=== PATIENT | female | born 1965 | race Caucasian/White ===

== ENCOUNTER 2017-05-07 22:27 | Emergency (ER) | payer MEDICAID ==
[2017-05-07] MEDS ORDERED: LORazepam 2 MG/ML VIAL IVP STA (22:41)
[2017-05-07] MEDS ORDERED: THIAMINE 100 MG TABLET PO STA (22:41)
[2017-05-07] MEDS ORDERED: chlordiazePOXIDE 25 MG CAPSULE PO STA (22:41)
[2017-05-07] MEDS ORDERED: FOLIC ACID 1 MG TABLET PO STA (22:41)
[2017-05-07] MEDS ORDERED: SODIUM CHLORIDE 0.9% 1,000 ML IV ONE (22:41)
[2017-05-07] MEDS ORDERED: ONDANSETRON 4 MG/2 ML VIAL IVP STA (22:42)
--- NOTE | 2017-05-07 22:53 | ED Physician Documentation ---
History of Present Illness - Stated complaint Stated Complaint: SANDHU/NOSE BLEED/VOMITING - Chief complaint Chief Complaint: Neuro - History obtained from History obtained from: Patient, Family - History of Present Illness Timing: Today - Additonal information Additional information: Patient is a 51 year old female presenting to the emergency department for alcohol withdrawal. Patient states that she has been binging on about 2 bottles of wine a day for the last couple of weeks. patient states that her last drink was about 24 hours ago. Patient states that today she has had the shakes, vomiting hallucinations and felt like her heart was racing. Patient and father state that they took her blood pressure at home and it was elevated. Review of Systems Constitutional: denies: Fever, Myalgias Eyes: denies: Decreased vision, Photophobia Ears: denies: Ear pain Nose: reports: Congestion Throat: reports: Reviewed and negative Cardiac: reports: Palpitations Respiratory: denies: Dyspnea GI: reports: Nausea, Vomiting : reports: Reviewed and negative Skin: denies: Rash, Lesions Musculoskeletal: reports: Reviewed and negative Neurologic: reports: Headache. denies: Focal weakness, Altered mental status, Head injury, LOC Psychiatric: reports: Hallucinations, Anxiety. denies: Depressed, Suicidal Immunocompromised: denies: Immunocompromised PD PAST MEDICAL HISTORY - Present Medications Home Medications: Ambulatory Orders Medication Instructions Recorded Confirmed LORazepam [Ativan] 0.5 mg PO Q6H #10 tablet 05/07/17 Ondansetron Odt [Zofran] 4 mg TL Q6H PRN #14 tablet 05/07/17 chlordiazePOXIDE [Librium] 25 mg PO Q6H #10 capsule 05/07/17 - Allergies Allergies/Adverse Reactions: Allergies Allergy/AdvReac Type Severity Reaction Status Date / Time No Known Drug Allergies Allergy Verified 05/07/17 22:47 PD ED PE NORMAL - Vitals Vital signs reviewed: Yes - General General: Alert and oriented X 3, Well developed/nourished - HEENT HEENT: Atraumatic, PERRL, Moist mucous membranes - Neck Neck: Supple, no meningeal sign, No JVD - Cardiac Cardiac: RRR, No murmur - Respiratory Respiratory: No respiratory distress, Clear bilaterally - Abdomen Abdomen: Soft, Non tender, Non distended - Derm Derm: Normal color, No rash - Extremities Extremities: No deformity - Neuro Neuro: Alert and oriented X 3, Other (mild tremor) Eye Opening: Spontaneous Motor: Obeys Commands Verbal: Oriented GCS Score: 15 PD ED PE EXPANDED - General General: Alert, Anxious Results - Vitals Vitals: Vital Signs - 24 hr 05/07/17 05/07/17 22:30 23:24 Temperature 36.0 C L Heart Rate 75 65 Respiratory 20 18 Rate Blood Pressure 157/87 H 138/85 H O2 Saturation 99 100 Oxygen O2 Source Room air PD MEDICAL DECISION MAKING - ED course Complexity details: reviewed old records, reviewed results, re-evaluated patient , considered differential, d/w patient, d/w family ED course: Patient was seen and examined at bedside. IV access was gained and patient was treated with ativan, librium zofran thiamine, folic acid and iv fluids. Patient had a mild tremor but was not diaphoretic, or tachycardic. Patient responded well to the therapy. Patient no longer had tremors and was normotensive. detailed discharge and follow up instructions was given to the family and the patient was stable for discharge with outpatient follow up. Departure - Departure Disposition: 01 Home, Self Care Clinical Impression: Alcohol withdrawal delirium, acute, hyperactive Condition: Good Instructions: ED Withdrawal Alcohol Follow-Up: primary,care provider [Other] Prescriptions: chlordiazePOXIDE [Librium] 25 mg PO Q6H #10 capsule LORazepam [Ativan] 0.5 mg PO Q6H #10 tablet Ondansetron Odt [Zofran] 4 mg TL Q6H PRN #14 tablet PRN Reason: Nausea / Vomiting Comments: Your symptoms today are being caused by alcohol withdrawal. You symptoms should get better over the next couple of days. You can take the ativan for quick response and librium for longer acting control of your symptoms. You should follow up with your doctor and look into support groups for alcoholism. you may return to the emergency department at any time for new, worsening or uncontrollable symptoms.
[2017-05-07 23:57] VITALS: BP 133/74
== END 2017-05-07 23:57 | disposition home or self-care (01) ==
LOC: ED 22:27
DX: F10.231 Alcohol dependence with withdrawal delirium (principal)
CPT/HCPCS: 96361; 96374; 99283; 99284; A9270; J2060

== ENCOUNTER 2017-08-26 21:35 | Emergency (ER) | payer MEDICAID ==
[2017-08-26 21:50] LABS: MUDS CUTOFF CONCENTRATIONS CUTOFF CONC BELOW:
[2017-08-26 21:53] LABS: BILIRUBIN,URINE NEGATIVE (NEGATIVE); GLUCOSE, URINE (UA) NEGATIVE (NEGATIVE); KETONES,URINE (UA) NEGATIVE (NEGATIVE); LEUKOCYTE ESTERASE, URINE SMALL (NEGATIVE); NITRITE,URINE NEGATIVE (NEGATIVE); OCCULT BLOOD,URINE TRACE-LYSE (NEGATIVE); PROTEIN,URINE NEGATIVE (NEGATIVE); UROBILINOGEN,URINE 0.2 (NORMAL) E.U./dL (NORMAL)
[2017-08-26 22:03] LABS: CLARITY,URINE CLEAR (CLEAR)
[2017-08-26 22:10] LABS: BASOPHILS # (AUTO) 0.1 10^3/uL (0.0-0.1); EOSINOPHILS # (AUTO) 0.1 10^3/uL (0.0-0.7); EOSINOPHILS % (AUTO) 1.8 %; HGB - HEMOGLOBIN 12.5 g/dL (12.0-16.0); LYMPHOCYTES # (AUTO) 2.2 10^3/uL (1.5-3.5); MEAN CORPUSCULAR HEMOGLOBIN 32.1 pg (27.0-31.0); MEAN CORPUSCULAR HGB CONC 33.7 g/dL (32.0-36.0); MEAN CORPUSCULAR VOLUME 95.3 fL (81.0-99.0); MEAN PLATELET VOLUME 6.9 fL (7.9-10.8); MONOCYTES # (AUTO) 0.4 10^3/uL (0.0-1.0); MONOCYTES % (AUTO) 7.6 %; NEUTROPHILS # (AUTO) 2.6 10^3/uL (1.5-6.6); NEUTROPHILS % (AUTO) 48.6 %; PLT - PLATELET COUNT 117 10^3/uL (130-450); RED BLOOD COUNT 3.91 10^6/uL (4.20-5.40); RED CELL DISTRIBUTION WIDTH 16.2 % (12.0-15.0); WHITE BLOOD COUNT 5.3 x10^3/uL (4.8-10.8)
[2017-08-26 22:11] LABS: WBC CLUMPS,URINE PRESENT
[2017-08-26 22:12] LABS: RBC,URINE 0-5 /HPF (0-5); SQUAMOUS EPITHELIAL CELL,UR RARE Squamous (<= Few)
[2017-08-26 22:13] LABS: AMPHETAMINE SCREEN,URINE NEGATIVE (NEGATIVE); BACTERIA,URINE Few /HPF (None Seen); BENZODIAZEPINES SCREEN, URINE NEGATIVE (NEGATIVE); COCAINE SCREEN URINE NEGATIVE (NEGATIVE); EPITHELIAL CELLS,UR RARE Transitional /HPF (<= Few); METHADONE SCREEN, URINE NEGATIVE (NEGATIVE); METHAMPHETAMINES SCREEN, URINE NEGATIVE (NEGATIVE); OPIATE SCREEN, URINE NEGATIVE (NEGATIVE); OXYCODONE SCREEN, URINE NEGATIVE (NEGATIVE); PROPOXYPHENE SCREEN, URINE NEGATIVE (NEGATIVE); TRICYCLIC ANTIDEPRESSANT,URINE NEGATIVE (NEGATIVE)
[2017-08-26 22:23] LABS: ALBUMIN 4.7 g/dL (3.2-5.5); ALBUMIN/GLOBULIN RATIO 1.4 (1.0-2.2); BILIRUBIN,TOTAL 0.7 mg/dL (0.2-1.0); CALCIUM 8.9 mg/dL (8.5-10.3); CREATININE 0.5 mg/dL (0.4-1.0); TOTAL PROTEIN 8.1 g/dL (6.7-8.2)
[2017-08-27] MEDS ORDERED: chlordiazePOXIDE 25 MG CAPSULE PO STA (05:08)
--- NOTE | 2017-08-27 05:51 | ED Physician Documentation ---
PD HPI ALTERED MENTAL STATUS - Stated complaint Stated Complaint: INTOXICATION - Chief complaint Chief Complaint: General - History obtained from History obtained from: Patient, Family - History of Present Illness Timing - onset: Today Timing - details: Gradual onset, Still present Quality / character: Less responsive Contributing factors: Intoxicated [place]line status: Alert and oriented X 3 Similar symptoms before: Work up / diagnostics, Treatment Recently seen: Not recently seen - Additional information Additional information: Patient is a 51 year old female with a history of alcohol abuse who is presenting to the emergency department for altered mental status. According to father he got a phone call because the patient had missed a couple of meetings. He tried to contact the patient but he was unable to get a hold of her. When he went to check on her she was found to be intoxicated. he thinks it might be due to a recent break-up. Review of Systems Unable to obtain: Intoxicated PD PAST MEDICAL HISTORY - Past Surgical History Past Surgical History: No - Present Medications Home Medications: Ambulatory Orders Medication Instructions Recorded Confirmed LORazepam [Ativan] 0.5 mg PO Q6H #10 tablet 05/07/17 Ondansetron Odt [Zofran] 4 mg TL Q6H PRN #14 tablet 05/07/17 chlordiazePOXIDE [Librium] 25 mg PO Q6H #10 capsule 05/07/17 LORazepam [Ativan] 0.5 mg PO Q6H #10 tablet 08/27/17 chlordiazePOXIDE [Librium] 25 mg PO Q6H #10 capsule 08/27/17 - Allergies Allergies/Adverse Reactions: Allergies Allergy/AdvReac Type Severity Reaction Status Date / Time No Known Drug Allergies Allergy Verified 08/26/17 21:51 - Social History Does the pt smoke?: No Smoking Status: Never smoker Does the pt drink ETOH?: Yes Does the pt have substance abuse?: No - Immunizations Immunizations are current?: Yes - POLST Patient has POLST: No PD ED PE NORMAL - Vitals Vital signs reviewed: Yes - HEENT HEENT: Atraumatic - Respiratory Respiratory: No respiratory distress - Abdomen Abdomen: Non distended - Derm Derm: Normal color - Extremities Extremities: No deformity - Neuro Eye Opening: To Voice Motor: Obeys Commands Verbal: Confused GCS Score: 13 PD ED PE EXPANDED - Cardiac Cardiac: Tachy - Psych Psych: Intoxicated / AOB Results - Vitals Vitals: Vital Signs - 24 hr 08/26/17 08/26/17 08/27/17 21:43 23:11 05:09 Temperature 36.7 C 37.0 C Heart Rate 128 H 103 H 110 H Respiratory 18 12 18 Rate Blood Pressure 157/104 H 130/90 H 120/82 H O2 Saturation 96 98 100 Oxygen O2 Source Room air - Labs Labs: Laboratory Tests 08/26/17 08/26/17 08/26/17 21:45 22:06 22:06 WBC 5.3 RBC 3.91 L Hgb 12.5 Hct 37.2 MCV 95.3 MCH 32.1 H MCHC 33.7 RDW 16.2 H Plt Count 117 L MPV 6.9 L Neut # 2.6 Lymph # 2.2 Bos[place] # 0.4 Eos # 0.1 Baso # 0.1 Absolute Nucleated RBC 0.00 Nucleated RBC % 0.0 Sodium 142 Potassium 4.0 Chloride 101 Carbon Dioxide 29 Anion Gap 12.0 BUN 10 Creatinine 0.5 Estimated GFR (MDRD) 129 Glucose 113 H Calcium 8.9 Total Bilirubin 0.7 AST 124 H ALT 61 H Alkaline Phosphatase 86 Total Protein 8.1 Albumin 4.7 Globulin 3.4 Albumin/Globulin Ratio 1.4 Lipase 31 Urine Color YELLOW Urine Clarity CLEAR Urine pH 7.0 Ur Specific Dixon 1.010 Urine Protein NEGATIVE Urine Glucose (UA) NEGATIVE Urine Ketones NEGATIVE Urine Occult Blood TRACE-LYSE Urine Nitrite NEGATIVE Urine Bilirubin NEGATIVE Urine Urobilinogen 0.2 (NORMAL) Ur Leukocyte Esterase SMALL H Urine RBC 0-5 Urine WBC 11-25 H Urine WBC Clumps PRESENT Ur Epithelial Cells RARE Transitional Ur Squamous Epith Cells RARE Squamous Urine Bacteria Few Ur Microscopic Review INDICATED Urine Culture Comments INDICATED Urine Opiates Screen NEGATIVE Ur Oxycodone Screen NEGATIVE Urine Methadone Screen NEGATIVE Ur Propoxyphene Screen NEGATIVE Ur Barbiturates Screen NEGATIVE Ur Tricyclics Screen NEGATIVE Ur Phencyclidine Scrn NEGATIVE Ur Amphetamine Screen NEGATIVE U Methamphetamines Scrn NEGATIVE U Benzodiazepines Scrn NEGATIVE Urine Cocaine Screen NEGATIVE U Cannabinoids Screen NEGATIVE Ethyl Alcohol 448.4 PD MEDICAL DECISION MAKING - ED course Complexity details: reviewed old records, reviewed results, re-evaluated patient , considered differential, d/w patient, d/w family ED course: Patient was seen and examined at bedside. IV access was gained and labs were drawn. Patient was treated with a fluid bolus. Patient was found to have an etoh of over 400. Patient was observed overnight. In the morning she was much more coherent. Patient reported that the binge did happen because of the recent boyfriend. Patient states that she had been drinking for the last two weeks. Patient was treated with librium as she would likely go into withdrawal. Patient was conversant, steady on her feet and appropriate. Patient required no further inpatient work up and was stable for discharge with outpatient follow up. Departure - Departure Disposition: 01 Home, Self Care Clinical Impression: Alcohol abuse Condition: Good Instructions: Alcoholism Follow-Up: primary,care provider [Other] Prescriptions: chlordiazePOXIDE [Librium] 25 mg PO Q6H #10 capsule LORazepam [Ativan] 0.5 mg PO Q6H #10 tablet Comments: Your symptoms today were caused by recent alcohol usage. You will likely have withdrawal symptoms over the next few days as you detox. You are being prescribed ativan and librium again like last time to help you through it. It is time to seek help with your addiction as it is having serious impacts on your life.
[2017-08-27 06:07] VITALS: BP 145/97
== END 2017-08-27 06:13 | disposition home or self-care (01) ==
LOC: ED 21:35
DX: F10.10 Alcohol abuse, uncomplicated (principal); Y90.8 Blood alcohol level of 240 mg/100 ml or more
CPT/HCPCS: 36415; 80053; 80306; 80320; 81001; 83690; 85025; 87086; 99284; A9270; 81003